=== PATIENT | male | born 1995 | race African-American/Black ===

== ENCOUNTER 2019-12-04 13:04 | Emergency (ER) | payer SELFPAY ==
[~2019-12-04] VITALS: Ht 170.2 cm; Wt 59.0 kg
[2019-12-04 13:07] VITALS: BP 105/58
--- NOTE | 2019-12-04 13:13 | NUR ---
24 Y/O MALE BIBA BLS C/O HEARING VOICES AND 6/10 HEADACHE. PT UNABLE TO STATE HOW LONG THIS HAS BEEN OCCURING. STATES HE IS SUPPOSED TO TAKE MEDICATIONS, BUT IS NONCOMPLAINT. DENIES SI. DENIES DRUG/ALCOHOL USE. STATES HE IS TIRED AND WANTS TO REST. PT PLACED ON MONITOR. RR EVEN AND UNLABORED. VSS MEDHX: SCHIZOPHRENIA ALLERGIES: NKA
[2019-12-04] MEDS ORDERED: OLANZapine 5 MG ODT SL ONE (13:20)
--- NOTE | 2019-12-04 15:35 | NUR ---
RESTING WITH EYES CLOSED, VISIBLE RISE AND FALL OF THE CHEST. REMAINS ON MONITOR. WILL CONTINUE TO MONITOR
--- NOTE | 2019-12-04 16:07 | NUR ---
PT REFUSED FOOD PACKET AND BUS PASS. PT WAS GIVEN HOMELESS PACKET WITH DETENTION INFORMATION.
--- NOTE | 2019-12-04 16:09 | NUR ---
Patient discharged with v/s stable. Written and verbal after care instructions given and explained. Patient verbalized understanding. Ambulatory with steady gait. All questions addressed prior to discharge. Advised to follow up with PMD.
[2019-12-04 16:10] VITALS: BP 105/58
== END 2019-12-04 16:09 | disposition home or self-care (01) ==
LOC: MED 13:04
DX: R44.3 Hallucinations, unspecified (principal); F12.90 Cannabis use, unspecified, uncomplicated; F15.90 Other stimulant use, unspecified, uncomplicated
CPT/HCPCS: 99283